=== PATIENT | male | born 1990 | race Caucasian/White ===

== ENCOUNTER 2023-04-12 20:22 | Emergency (ER) | payer MEDICAID, OTHER ==
--- NOTE | 2023-04-12 20:50 | ED Physician Documentation ---
History of Present Illness - Stated complaint Stated Complaint: BACK PX - Chief complaint Chief Complaint: Back Pain - History obtained from History obtained from: Patient - Additonal information Additional information: 32yM presents with sharp upper back pain radiating to the chest with associated soa for the past few hours. patient threw out his back last saturday and was lying on the floor today trying to gently stretch it when pain started. denies cough, nausea, fever, urinary sx, abdominal pain. PD PAST MEDICAL HISTORY - Present Medications Home Medications: Ambulatory Orders Medication Instructions Recorded Confirmed Ketorolac [Toradol] 10 mg PO Q6H PRN #30 tablet 04/12/23 - Allergies Allergies/Adverse Reactions: Allergies Allergy/AdvReac Type Severity Reaction Status Date / Time hydromorphone Allergy Itching Verified 04/12/23 20:31 PD ED PE NORMAL - Vitals Vital signs reviewed: Yes - General General: Alert and oriented X 3, No acute distress, Well developed/nourished - HEENT HEENT: Atraumatic, PERRL, EOMI - Neck Neck: Supple, no meningeal sign - Cardiac Cardiac: RRR - Respiratory Respiratory: No respiratory distress, Clear bilaterally - Abdomen Abdomen: Non tender, Non distended - Back Back: No spinal TTP, Other (BL midback ttp with muscle distribution. tender with twisting of the trunk or sitting up in bed) - Derm Derm: Normal color, Warm and dry, No rash Results - Vitals Vitals: Vital Signs - 24 hr 04/12/23 04/12/23 20:26 21:50 Temperature 36.8 C Heart Rate 58 L 57 L Respiratory 16 16 Rate Blood Pressure 119/73 110/73 O2 Saturation 100 99 Oxygen O2 Source Room air - EKG (time done) 2035 EKG releavant findings:: EKG personally interpreted by author of this note. Relevant findings are: Rate: Rate (enter#) (57) Rhythm: NSR [place]: Normal Intervals: Normal PA QRS: Normal Ischemia: Normal ST segments PD Medical Decision Making - ED course ED course: 32yM presents with MSK appearing back pain radiating to the chest X 1 day, with benign physical exam, vitals, and ekg. cxr wet read benign. IM toradol ordered with improvement in pain. return precautions given. plan to f/u pcp. Departure - Departure Disposition: Home, Self Care Clinical Impression: Back pain Condition: Stable Instructions: ED Low Back Pain Injury Prescriptions: Ketorolac [Toradol] 10 mg PO Q6H PRN #30 tablet PRN Reason: Pain Comments: You were seen in the emergency department for midback pain that is muscle related in origin. A prescription for Strong anti-inflammatory pain medicine was sent electronically to [facility] [place]. Please follow-up with your primary care provider and return to the emergency department if you have any new or worsening symptoms or other concerns.
[2023-04-12] MEDS ORDERED: KETOROLAC 30 MG/ML VIAL IM STA (20:58)
[2023-04-12] MEDS ORDERED: oxyCODONE 5 MG TABLET PO STA (21:52)
[2023-04-12 21:56] VITALS: BP 110/73; O2SAT 99
--- NOTE | 2023-04-13 00:21 | XRAY Report ---
PROCEDURE: Chest 2 View X-Ray INDICATIONS: mid back pain radiating to chest TECHNIQUE: 2 views of the chest were acquired. COMPARISON: None. FINDINGS: Surgical changes and devices: None. Lungs and pleura: No pleural effusions or pneumothorax. Lungs are clear. Mediastinum: Mediastinal contours appear normal. Heart size is normal. Bones and chest wall: No suspicious bony lesions. Overlying soft tissues appear unremarkable. IMPRESSION: No acute cardiopulmonary process. Reviewed by: Daron Torres on 04/13/2023 12:20 AM PDT Approved by: Daron Torres on 04/13/2023 12:20 AM PDT Station ID: [id number]
== END 2023-04-13 00:38 | disposition home or self-care (01) ==
LOC: ED 20:22
DX: M54.6 Pain in thoracic spine (principal)
CPT/HCPCS: 71046; 93005; 96372; 99284; A9270

== ENCOUNTER 2024-01-23 15:21 | Outpatient (CLI) | payer OTHER ==
[2024-01-23 15:48] LABS: CALCIUM 9.9 mg/dL (8.5-10.3); CREATININE 1.1 mg/dL (0.6-1.3); POTASSIUM 4.3 mmol/L (3.5-4.5)
--- NOTE | 2024-01-23 17:36 | XRAY Report ---
PROCEDURE: Lumbar Spine 2-3V INDICATIONS: LOW BACK PAIN TECHNIQUE: 3 views of the lumbar spine were acquired. COMPARISON: None. FINDINGS: Surgical change: None. Bones: 5 [id number] vertebrae are present. There is normal bony alignment. No vertebral body co mpression fractures. No suspicious bony lesions. There is loss of the expected lumbar lordosis. Soft tissues: Overlying bowel gas pattern is normal. No suspicious soft tissue calcifications. IMPRESSION: No compression deformities or degenerative changes. Reviewed by: Gabbie Villar MD on 01/23/2024 5:34 PM PDT Approved by: Gabbie Villar MD on 01/23/2024 5:34 PM PDT Station ID: [id number]
== END 2024-01-23 15:22 | disposition home or self-care (01) ==
LOC: LAB 15:21
PROVIDERS: ATTEND Physician Assistant
DX: M54.50 Low back pain, unspecified (principal); G89.29 Other chronic pain
CPT/HCPCS: 36415; 80048

== ENCOUNTER 2024-02-04 13:27 | Outpatient (CLI) | payer OTHER ==
[2024-02-04 13:39] LABS: BASOPHILS % (AUTO) 0.3 %; EOSINOPHILS # (AUTO) 0.1 10^3/uL (0.0-0.7); HGB - HEMOGLOBIN 14.6 g/dL (14.0-18.0); LYMPHOCYTES # (AUTO) 1.8 10^3/uL (1.5-3.5); LYMPHOCYTES % (AUTO) 25.2 %; MEAN CORPUSCULAR HEMOGLOBIN 28.7 pg (27.0-31.0); MEAN CORPUSCULAR HGB CONC 31.7 g/dL (32.0-36.0); MEAN CORPUSCULAR VOLUME 90.6 fL (80.0-94.0); MEAN PLATELET VOLUME 10.2 fL (7.4-11.4); MONOCYTES # (AUTO) 0.6 10^3/uL (0.0-1.0); MONOCYTES % (AUTO) 8.3 %; NEUTROPHILS # (AUTO) 4.5 10^3/uL (1.5-6.6); NEUTROPHILS % (AUTO) 63.4 %; PLT - PLATELET COUNT 244 10^3/uL (130-450); RED BLOOD COUNT 5.08 10^6/uL (4.70-6.10); RED CELL DISTRIBUTION WIDTH 13.5 % (12.0-15.0); WHITE BLOOD COUNT 7.1 x10^3/uL (4.8-10.8)
[2024-02-04 14:04] LABS: CHOL/HDL RATIO 4.4 (<5.0); CHOLESTEROL 163 mg/dL; HDL CHOLESTEROL 37 mg/dL; LDL CHOLESTEROL,CALCULATED 100 mg/dL; LDL/HDL RATIO 2.7 (<3.6); TRIGLYCERIDES 130 mg/dL (48-352); VLDL CHOLESTEROL 26 mg/dL
[2024-02-04 14:14] LABS: THYROID STIMULATING HORMONE 1.07 uIU/mL (0.34-5.60)
[2024-02-04 14:16] LABS: ALBUMIN 4.5 g/dL (3.2-5.5); ALBUMIN/GLOBULIN RATIO 1.6 (1.0-2.2); ALKALINE PHOSPHATASE 31 IU/L (42-121); ALT ALANINE AMINOTRANSFERASE 16 IU/L (10-60); AST ASPARTATE AMINOTRANSFERASE 17 IU/L (10-42); BILIRUBIN,TOTAL 0.5 mg/dL (0.2-1.0); BUN - BLOOD UREA NITROGEN 16 mg/dL (6-20); CALCIUM 9.5 mg/dL (8.5-10.3); CARBON DIOXIDE - CO2 31 mmol/L (21-32); CHLORIDE 104 mmol/L (101-111); CREATININE 1.1 mg/dL (0.6-1.3); GFR - MDRD 77 (>89); GLUCOSE 108 mg/dL (74-104); POTASSIUM 4.3 mmol/L (3.5-4.5); SODIUM 137 mmol/L (135-145); TOTAL PROTEIN 7.4 g/dL (6.4-8.9)
== END 2024-02-04 13:28 | disposition home or self-care (01) ==
LOC: LAB 13:27
PROVIDERS: ATTEND Nurse Practitioner Family
DX: R10.9 Unspecified abdominal pain (principal); K62.5 Hemorrhage of anus and rectum; Z83.49 Family history of other endocrine, nutritional and metabolic diseases
CPT/HCPCS: 36415; 80053; 80061; 83721; 84443; 85025

== ENCOUNTER 2024-02-16 15:50 | Outpatient (CLI) | payer OTHER ==
--- NOTE | 2024-02-16 22:59 | Ultrasound Report ---
PROCEDURE: Renal (Retroperitoneal) INDICATIONS: BILATERAL FLANK PAIN. 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 TECHNIQUE: Real-time scanning was performed of the retroperitoneal organs, with image documentation. COMPARISON: None. FINDINGS: Kidneys: Kidneys are normal in size. Right kidney measures 10 cm long; left kidney measures 10 cm l isac. Right renal cortical thickness is 0.7 cm; left renal cortical thickness is 1.4 cm. No solid ma sses, hydronephrosis, or nephrolithiasis. Bladder: Pre-void bladder volume is 176 mL. Post-void residual is 15 mL. Pre-void images demonstra te no intraluminal masses or stones. On pre-void images, bilateral ureteral jets are noted with colo r Doppler interrogation. (Of note, ureteral jets may not be detectable in up to 25% of cases due to insufficient differences in specific gravity between ureteral and bladder urine). Miscellaneous: No free abdominal fluid. Prostate is normal in size measuring 3.5 x 3.5 x 3.2 cm. Hy perechoic focus with twinkle artifact in the prostate measuring 1.5 x 1.1 x 1.6 cm likely represents a dystrophic calcification. IMPRESSION: 1.No hydronephrosis or nephrolithiasis bilaterally. 2.Bilateral renal cortical thinning, right greater than left, compatible with known history of prior infection/inflammation. Reviewed by: Trupti Alvarez MD on 02/16/2024 10:57 PM PDT Approved by: Trupti Alvarez MD on 02/16/2024 10:57 PM PDT Station ID: [id number]
== END 2024-02-16 15:51 | disposition home or self-care (01) ==
LOC: DI 15:50
PROVIDERS: ATTEND Nurse Practitioner Family
DX: R10.9 Unspecified abdominal pain (principal); R93.421 Abnormal radiologic findings on diagnostic imaging of right kidney; R93.422 Abnormal radiologic findings on diagnostic imaging of left kidney; Z87.448 Personal history of other diseases of urinary system